=== PATIENT | male | born 1960 | race Caucasian/White ===

== ENCOUNTER 2020-03-03 04:00 | Inpatient (IN) | payer BC ==
[~2020-03-03] VITALS: Ht 180.3 cm; Wt 78.9 kg
[2020-03-03] MEDS ORDERED: levETIRAcetam 500 MG/5ML INJ IV ONE (04:59)
[2020-03-03] MEDS ORDERED: LORazepam 2MG/ML-1ML VIAL IV ONE ×2 (05:00→09:15)
[2020-03-03 06:11] LABS: Basophils # (auto) 0 10 ^3/uL (0-0.2); Eosinophils # (auto) 0 10 ^3/uL (0-0.8); Eosinophils % (auto) 0.2 % (0.0-7.0); Hemoglobin 15.4 g/dL (13.5-17.5); Lymphocytes # (auto) 0.4 10 ^3/uL (0.4-5.4)
[2020-03-03 06:13] LABS: Basophils % (auto) 0.1 % (0.0-2.0); Hematocrit 43.6 % (41.0-53.0); Lymphocytes % (auto) 7.9 % (10.0-50.0); Mean Corpuscular Hemoglobin 36.5 pg (28.0-32.0); Mean Corpuscular Hgb Conc. 35.3 g/dL (32.0-36.0); Mean Corpuscular Volume 103.3 fL (80.0-100.0); Monocytes # (auto) 0.6 10 ^3/uL (0-1.3); Monocytes % (auto) 12.6 % (0.0-12.0); Neutrophils % (auto) 79.2 % (37.0-80.0); Platelet Count (auto) 81 10^3/uL (140-450); Red Blood Cells 4.22 10^6/uL (4.5-5.90); Red Cell Distribution Width 15.6 % (11.8-14.3)
[2020-03-03 06:27] LABS: Blood Urea Nitrogen 11 mg/dL (7-18); Chloride 88 mmol/L (98-107); Potassium 3.6 mmol/L (3.5-5.1); Sodium 125 mmol/L (136-145)
[2020-03-03 06:32] LABS: Alcohol, Urine < 3.0 mg/dL (0-10); Amphetamine Screen, Urine NEGATIVE (NEGATIVE); Barbiturate Scree,Urine NEGATIVE (NEGATIVE); Benzodiazephine Screen, Urine NEGATIVE (NEGATIVE); Cannabinoid Screen, Urine NEGATIVE (NEGATIVE); Cocaine Screen, Urine NEGATIVE (NEGATIVE); Opiate Scree,Urine NEGATIVE (NEGATIVE); Phencyclidine Screen, Urine NEGATIVE (NEGATIVE)
[2020-03-03 06:34] LABS: Alanine Aminotransferase 59 U/L (16-61); Albumin 3.5 g/dL (3.4-5.0); Alkaline Phosphatase 116 U/L (45-117); Anion Gap 12 (5-15); Aspartate Aminotransferase 68 U/L (15-37); BUN/Creatinine Ratio 15.1; Blood Alcohol < 3.0 mg/dL (0-5); Carbon Dioxide 25 mmol/L (21-32); GFR African American 142 mL/min; GFR Non-African American 117 mL/min; Glucose 132 mg/dL (74-106); Total Protein 6.4 g/dL (6.4-8.2)
[2020-03-03] MEDS ORDERED: THIAMINE 100mg/ml INJ (200mg/2ml VIAL) IV ONE (07:15)
[2020-03-03] MEDS ORDERED: SODIUM CHLORIDE 0.9% 1,000 ML IV ONE ×2 (07:15)
[2020-03-03] MEDS ORDERED: chlordiazePOXIDE HCL 25 MG CAP PO ONE (12:30)
[2020-03-03] MEDS ORDERED: FOLIC ACID 1 MG, MULTIPLE VITAMIN 10 ML, MAGNESIUM SULF SDV 50% 8 MEQ, THIAMINE INJ 100... INJ SCH ×5 (12:34)
[2020-03-03] MEDS ORDERED: MORPHINE SULF INJ 2 MG/ML SYRINGE 1ML IV PRN (13:15)
[2020-03-03] MEDS ORDERED: LORazepam 2MG/ML-1ML VIAL IV PRN (13:15)
[2020-03-03] MEDS ORDERED: NITROGLYCERIN 0.4 MG SL TAB SL PRN (13:15)
[2020-03-03] MEDS: FOLIC ACID 1 MG, MULTIPLE VITAMIN 10 ML, MAGNESIUM SULF SDV 50% 8 MEQ, THIAMINE INJ 100... INJ SCH ×5 (14:18)
[2020-03-03] MEDS ORDERED: IBUP600T27 PO (16:15)
[2020-03-03] MEDS: chlordiazePOXIDE HCL 25 MG CAP PO SCH ×2 (18:01→23:50)
[2020-03-03] MEDS: LORazepam 2MG/ML-1ML VIAL IV PRN ×2 (20:15→23:16)
[2020-03-04] MEDS ORDERED: LORazepam 2MG/ML-1ML VIAL IV ONE (00:30)
[2020-03-04] MEDS: LORazepam 2MG/ML-1ML VIAL IV PRN ×3 (02:17→12:08)
[2020-03-04] MEDS: chlordiazePOXIDE HCL 25 MG CAP PO SCH ×3 (06:15→17:21)
[2020-03-04 06:45] LABS: BUN/Creatinine Ratio 23.6; Calcium 8.1 mg/dL (8.5-10.1)
[2020-03-04] MEDS ORDERED: NICOTINE 21MG/24 HR TOPICAL PATCH TD ONE (07:15)
[2020-03-04 08:40] VITALS: BP 125/73
[2020-03-04 08:59] VITALS: BP 125/73
[2020-03-04] MEDS ORDERED: PANTOPRAZOLE 40 MG TAB PO SCH (10:00)
[2020-03-04 13:42] VITALS: BP 128/70
[2020-03-04] MEDS: FOLIC ACID 1 MG, MULTIPLE VITAMIN 10 ML, MAGNESIUM SULF SDV 50% 8 MEQ, THIAMINE INJ 100... INJ SCH ×5 (14:52)
[2020-03-04 16:17] VITALS: BP 137/76
== END 2020-03-04 18:30 | disposition left against medical advice (07) | DRG 894 ==
LOC: EDSEX 04:00 → EDBD 04:00 → ER 04:07 → TELE 04:08 → WEST WING 03-04 08:27 → TELE-WESTW 03-04 09:04 → WEST WING 03-04 11:34
PROVIDERS: ADMIT Nurse Practitioner Acute Care; ATTEND Internal Medicine
DX: F10.231 Alcohol dependence with withdrawal delirium (principal); G93.41 Metabolic encephalopathy; E87.1 Hypo-osmolality and hyponatremia; D69.6 Thrombocytopenia, unspecified; E86.0 Dehydration; F17.210 Nicotine dependence, cigarettes, uncomplicated; I95.9 Hypotension, unspecified
CPT/HCPCS: 36415; 70450; 72125; 80048; 80053; 80307; 80320; 85025; 96361; 96365; 96375; G0378; J7060

== ENCOUNTER 2020-11-05 18:06 | Emergency (ER) | payer BC ==
[~2020-11-05] VITALS: Ht 182.9 cm; Wt 68.0 kg
[~2020-11-05 18:06] MED LIST: IBUP600T27 PO
[2020-11-05] MEDS ORDERED: KETOROLAC TROMETH 30 MG/ML 1ML VIAL IV ONE (20:30)
[2020-11-05 20:34] VITALS: BP 132/76
== END 2020-11-05 20:34 | disposition left against medical advice (07) ==
LOC: EDBD 18:06 → ER 18:09
DX: M25.552 Pain in left hip (principal); F17.210 Nicotine dependence, cigarettes, uncomplicated; Z53.29 Procedure and treatment not carried out because of patient's decision for other reasons; W01.0XXA Fall on same level from slipping, tripping and stumbling without subsequent striking against object, initial encounter; Y93.89 Activity, other specified; Y92.89 Other specified places as the place of occurrence of the external cause; Y99.8 Other external cause status
CPT/HCPCS: 73502; 96374; 99283; J1885

== ENCOUNTER 2021-02-12 02:39 | Inpatient (IN) | payer BC, OTHER ==
[~2021-02-12] VITALS: Ht 180.3 cm; Wt 88.5 kg
[2021-02-12] MEDS ORDERED: ACCU-CHEK COMFORT CURVE STRIP VI ONE (03:00)
[2021-02-12 04:41] LABS: Basophils # (auto) 0 10 ^3/uL (0-0.2); Basophils % (auto) 0.1 % (0.0-2.0); Eosinophils # (auto) 0 10 ^3/uL (0-0.8); Hematocrit 30.9 % (41.0-53.0); Hemoglobin 10.4 g/dL (13.5-17.5); Lymphocytes # (auto) 0.3 10 ^3/uL (0.4-5.4); Lymphocytes % (auto) 5.9 % (10.0-50.0); Mean Corpuscular Hemoglobin 31.8 pg (28.0-32.0); Mean Corpuscular Hgb Conc. 33.5 g/dL (32.0-36.0); Mean Corpuscular Volume 94.9 fL (80.0-100.0); Monocytes # (auto) 0.7 10 ^3/uL (0-1.3); Monocytes % (auto) 13.2 % (0.0-12.0); Neutrophils # (auto) 4.4 10 ^3/uL (1.6-8.6); Neutrophils % (auto) 80.8 % (37.0-80.0); Red Blood Cells 3.26 10^6/uL (4.5-5.90); Red Cell Distribution Width 20.6 % (11.8-14.3); White Blood Cell 5.5 10^3/uL (4.4-10.8)
[2021-02-12 04:54] LABS: Albumin 1.7 g/dL (3.4-5.0); Calcium 8.6 mg/dL (8.5-10.1); Potassium 3.2 mmol/L (3.5-5.1)
[2021-02-12 04:59] LABS: Urine Bacteria NONE SEEN /hpf (None Seen); Urine Blood 3+ /uL (Negative); Urine Hyaline Cast MOD /lpf (0 - 2); Urine Mucus FEW (None Seen); Urine Specific Gravity 1.027 (1.001-1.035); Urine WBC 160 /hpf (0 - 3)
[2021-02-12] MEDS ORDERED: SODIUM CHLORIDE 0.9% 1,000 ML IV ONE (05:00)
[2021-02-12] MEDS ORDERED: MVI in SODIUM CHLORIDE 0.9% 1,010 ML IV ONE (05:00)
[2021-02-12] MEDS ORDERED: THIAMINE 100mg/ml INJ (200mg/2ml VIAL) IV ONE (05:00)
[2021-02-12 05:01] LABS: Bilirubin, Total 0.6 mg/dL (0.2-1.0); Total Protein 6.8 g/dL (6.4-8.2)
[2021-02-12] MEDS: MAGNESIUM SULFATE 1GM/100ML 100 ML IV SCH ×2 (05:43→06:50)
[2021-02-12] MEDS ORDERED: D5W/ SOD CHL 0.9%/KCL 20MEQ 1,000 ML IV ONE (05:45)
[2021-02-12] MEDS ORDERED: cefTRIAXone 1GM/50ML D5W 50 ML IV ONE (05:45)
[2021-02-12 05:50] LABS: INR 1.04 (0.9-1.15); Partial Thromboplastin Time 39.9 sec (23.6-33.0)
[2021-02-12 06:01] LABS: Magnesium 1.7 mg/dL (1.6-2.6)
[2021-02-12 06:30] LABS: Blood Alcohol < 3.0 mg/dL (0-5)
[2021-02-12] MEDS ORDERED: chlordiazePOXIDE HCL 25 MG CAP PO ONE (06:30)
[2021-02-12] MEDS ORDERED: NITROGLYCERIN 0.4 MG SL TAB SL PRN (07:30)
[2021-02-12] MEDS ORDERED: ONDANSETRON HCL 4 MG/2 ML VIAL IV PRN (07:30)
[2021-02-12] MEDS ORDERED: MORPHINE SULFATE INJECTION 2 MG/ML SYRG IV PRN (07:30)
[2021-02-12] MEDS ORDERED: chlordiazePOXIDE HCL 25 MG CAP PO PRN (07:30)
[2021-02-12] MEDS: ENOXAPARIN SOD 40 MG/0.4 ML SYRINGE SC SCH (10:22)
[2021-02-12] MEDS: PANTOPRAZOLE 40 MG TAB PO SCH (10:22)
[2021-02-12 11:59] LABS: BUN/Creatinine Ratio 28.9; Calcium 8.1 mg/dL (8.5-10.1); Potassium 3.2 mmol/L (3.5-5.1)
[2021-02-12] MEDS ORDERED: VANCOMYCIN PER PHARMACY 0 MG IV SCH (12:00)
[2021-02-12 12:31] LABS: Alcohol, Urine < 3.0 mg/dL (0-10); Amphetamine Screen, Urine NEGATIVE (NEGATIVE); Barbiturate Scree,Urine NEGATIVE (NEGATIVE); Benzodiazephine Screen, Urine NEGATIVE (NEGATIVE); Cannabinoid Screen, Urine NEGATIVE (NEGATIVE); Cocaine Screen, Urine NEGATIVE (NEGATIVE); Opiate Scree,Urine NEGATIVE (NEGATIVE); Phencyclidine Screen, Urine NEGATIVE (NEGATIVE)
[2021-02-12] MEDS: chlordiazePOXIDE HCL 5 MG CAP PO SCH ×3 (12:54→21:50)
[2021-02-12] MEDS: VANCOMYCIN 1GM/250ML 250 ML IV SCH ×2 (13:57→23:43)
[2021-02-12] MEDS: dilTIAZem 120MG ER CAP PO SCH (14:43)
[2021-02-12] MEDS: SOD CHL 0.9%/ KCL 40MEQ 1,000 ML IV SCH (14:45)
[2021-02-12 16:56] VITALS: BP 120/74
[2021-02-12 22:00] VITALS: BP 123/74
[2021-02-12] MEDS: MORPHINE SULFATE INJECTION 2 MG/ML SYRG IV PRN (23:43)
[2021-02-13] MEDS: SOD CHL 0.9%/ KCL 40MEQ 1,000 ML IV SCH ×2 (04:06→21:32)
[2021-02-13 05:00] VITALS: BP 117/64
[2021-02-13 06:04] LABS: Basophils # (auto) 0 10 ^3/uL (0-0.2); Eosinophils # (auto) 0 10 ^3/uL (0-0.8); Eosinophils % (auto) 0.4 % (0.0-7.0); Hemoglobin 8.1 g/dL (13.5-17.5); Lymphocytes # (auto) 0.6 10 ^3/uL (0.4-5.4); Monocytes # (auto) 0.6 10 ^3/uL (0-1.3); Neutrophils # (auto) 2.7 10 ^3/uL (1.6-8.6); Red Blood Cells 2.52 10^6/uL (4.5-5.90); White Blood Cell 3.9 10^3/uL (4.4-10.8)
[2021-02-13 06:07] LABS: Basophils % (auto) 0.2 % (0.0-2.0); Lymphocytes % (auto) 14.6 % (10.0-50.0); Mean Corpuscular Hemoglobin 32.3 pg (28.0-32.0); Mean Corpuscular Hgb Conc. 33.9 g/dL (32.0-36.0); Mean Corpuscular Volume 95.4 fL (80.0-100.0); Monocytes % (auto) 15.4 % (0.0-12.0); Neutrophils % (auto) 69.4 % (37.0-80.0); Red Cell Distribution Width 20.1 % (11.8-14.3)
[2021-02-13] MEDS: chlordiazePOXIDE HCL 5 MG CAP PO SCH ×4 (06:31→22:06)
[2021-02-13 06:57] LABS: Calcium 8.2 mg/dL (8.5-10.1); Potassium 3.1 mmol/L (3.5-5.1)
[2021-02-13 07:01] LABS: Albumin 1.1 g/dL (3.4-5.0); BUN/Creatinine Ratio 37.1
[2021-02-13 07:04] LABS: Bilirubin, Total 0.4 mg/dL (0.2-1.0); Total Protein 5.5 g/dL (6.4-8.2)
[2021-02-13 08:00] VITALS: BP 111/60
[2021-02-13 09:00] VITALS: BP 111/60
[2021-02-13] MEDS: cefTRIAXone 1GM/50ML D5W 50 ML IV SCH (09:52)
[2021-02-13] MEDS: THIAMINE HCL 100 MG TAB PO SCH (09:52)
[2021-02-13] MEDS: PANTOPRAZOLE 40 MG TAB PO SCH (09:53)
[2021-02-13] MEDS: ENOXAPARIN SOD 40 MG/0.4 ML SYRINGE SC SCH (09:53)
[2021-02-13] MEDS: dilTIAZem 120MG ER CAP PO SCH (09:54)
[2021-02-13] MEDS: MORPHINE SULFATE INJECTION 2 MG/ML SYRG IV PRN ×4 (09:55→22:06)
[2021-02-13] MEDS: VANCOMYCIN 1GM/250ML 250 ML IV SCH ×2 (11:23→19:56)
[2021-02-13 12:58] VITALS: BP 101/73
[2021-02-13] MEDS: Ensure HIGH Protein Chocolate 8oz Bottle PO SCH ×2 (13:47→18:08)
[2021-02-13] MEDS: FOLIC ACID 1 MG, MULTIPLE VITAMIN 10 ML, MAGNESIUM SULF SDV 50% 8 MEQ, THIAMINE INJ 100... INJ SCH ×5 (13:48)
[2021-02-13] MEDS ORDERED: NICOTINE 14 MG/24HR TOPICAL PATCH TD ONE (14:00)
[2021-02-13 17:00] VITALS: BP 97/59
[2021-02-13 22:00] VITALS: BP 120/58
[2021-02-14 05:00] VITALS: BP 117/67
[2021-02-14] MEDS: chlordiazePOXIDE HCL 5 MG CAP PO SCH ×4 (05:31→23:32)
[2021-02-14] MEDS: MORPHINE SULFATE INJECTION 2 MG/ML SYRG IV PRN ×3 (05:31→18:16)
[2021-02-14] MEDS: VANCOMYCIN 1GM/250ML 250 ML IV SCH ×2 (05:32→16:29)
[2021-02-14 08:00] VITALS: BP 126/63
[2021-02-14 09:00] VITALS: BP 126/63
[2021-02-14] MEDS: SOD CHL 0.9%/ KCL 40MEQ 1,000 ML IV SCH (09:40)
[2021-02-14] MEDS: Ensure HIGH Protein Chocolate 8oz Bottle PO SCH ×3 (09:40→18:15)
[2021-02-14] MEDS: cefTRIAXone 1GM/50ML D5W 50 ML IV SCH (09:45)
[2021-02-14] MEDS: dilTIAZem 120MG ER CAP PO SCH (09:46)
[2021-02-14] MEDS: PANTOPRAZOLE 40 MG TAB PO SCH (09:46)
[2021-02-14] MEDS: ENOXAPARIN SOD 40 MG/0.4 ML SYRINGE SC SCH (09:47)
[2021-02-14] MEDS: THIAMINE HCL 100 MG TAB PO SCH (09:47)
[2021-02-14] MEDS: NICOTINE 14 MG/24HR TOPICAL PATCH TD SCH (09:48)
[2021-02-14] MEDS: ACETAMINOPHEN 325 MG TAB PO PRN (09:57)
[2021-02-14 12:47] VITALS: BP 123/62
[2021-02-14] MEDS: FOLIC ACID 1 MG, MULTIPLE VITAMIN 10 ML, MAGNESIUM SULF SDV 50% 8 MEQ, THIAMINE INJ 100... INJ SCH ×5 (13:26)
[2021-02-14 16:41] VITALS: BP 124/66
[2021-02-14 22:00] VITALS: BP 136/56
[2021-02-15] MEDS: VANCOMYCIN 1GM/250ML 250 ML IV SCH ×2 (03:56→12:25)
[2021-02-15 05:00] VITALS: BP 135/65
[2021-02-15] MEDS: chlordiazePOXIDE HCL 5 MG CAP PO SCH ×4 (06:14→21:15)
[2021-02-15] MEDS: MORPHINE SULFATE INJECTION 2 MG/ML SYRG IV PRN ×4 (06:15→18:36)
[2021-02-15] MEDS: SOD CHL 0.9%/ KCL 40MEQ 1,000 ML IV SCH ×2 (06:18→09:56)
[2021-02-15 08:00] VITALS: BP 149/60
[2021-02-15 09:00] VITALS: BP 149/60
[2021-02-15] MEDS: Ensure HIGH Protein Chocolate 8oz Bottle PO SCH ×3 (09:53→17:18)
[2021-02-15] MEDS: cefTRIAXone 1GM/50ML D5W 50 ML IV SCH (09:53)
[2021-02-15] MEDS: THIAMINE HCL 100 MG TAB PO SCH (09:53)
[2021-02-15] MEDS: PANTOPRAZOLE 40 MG TAB PO SCH (09:54)
[2021-02-15] MEDS: ENOXAPARIN SOD 40 MG/0.4 ML SYRINGE SC SCH (09:54)
[2021-02-15] MEDS: dilTIAZem 120MG ER CAP PO SCH (09:54)
[2021-02-15] MEDS: NICOTINE 14 MG/24HR TOPICAL PATCH TD SCH (09:56)
[2021-02-15] MEDS: FOLIC ACID 1 MG, MULTIPLE VITAMIN 10 ML, MAGNESIUM SULF SDV 50% 8 MEQ, THIAMINE INJ 100... INJ SCH ×5 (12:24)
[2021-02-15 13:00] VITALS: BP 132/70
[2021-02-15 17:00] VITALS: BP 126/62
[2021-02-15 22:09] VITALS: BP 155/68
[2021-02-16] VITALS (17 sets, daily range): BP systolic 116–148; BP diastolic 63–83
[2021-02-16] MEDS: MORPHINE SULFATE INJECTION 2 MG/ML SYRG IV PRN ×2 (01:56→21:08)
[2021-02-16 06:52] LABS: Basophils # (auto) 0 10 ^3/uL (0-0.2); Eosinophils # (auto) 0 10 ^3/uL (0-0.8); Hemoglobin 7.7 g/dL (13.5-17.5); Monocytes # (auto) 0.5 10 ^3/uL (0-1.3); Nucleated Red Blood Cells % 0.1 %; White Blood Cell 3.5 10^3/uL (4.4-10.8)
[2021-02-16 06:54] LABS: Eosinophils % (auto) 0.8 % (0.0-7.0); Lymphocytes # (auto) 0.9 10 ^3/uL (0.4-5.4); Lymphocytes % (auto) 27.1 % (10.0-50.0); Mean Corpuscular Hemoglobin 31.7 pg (28.0-32.0); Mean Corpuscular Hgb Conc. 33.6 g/dL (32.0-36.0); Mean Corpuscular Volume 94.3 fL (80.0-100.0); Monocytes % (auto) 14.7 % (0.0-12.0); Neutrophils % (auto) 56.4 % (37.0-80.0); Red Blood Cells 2.44 10^6/uL (4.5-5.90); Red Cell Distribution Width 19.7 % (11.8-14.3)
[2021-02-16 07:11] LABS: INR 0.97 (0.9-1.15); Partial Thromboplastin Time 34.7 sec (23.6-33.0)
[2021-02-16 07:17] LABS: BUN/Creatinine Ratio 14.8; Calcium 8.3 mg/dL (8.5-10.1); Potassium 4.1 mmol/L (3.5-5.1)
[2021-02-16] MEDS: Ensure HIGH Protein Chocolate 8oz Bottle PO SCH ×3 (08:00→18:00)
[2021-02-16] MEDS: cefTRIAXone 1GM/50ML D5W 50 ML IV SCH (08:09)
[2021-02-16] MEDS ORDERED: TRANEXAMIC ACID 20 ML ONE (08:34)
[2021-02-16] MEDS ORDERED: VANCOMYCIN HCL 1000 MG VL ONE (08:37)
[2021-02-16] MEDS ORDERED: MORPHINE SULF PF 2 MG/2 ML SYRG ONE (09:08)
[2021-02-16] MEDS: EPINEPHrine HCL 1 MG/1 ML AMP ONE ×2 (09:11→11:00)
[2021-02-16] MEDS ORDERED: BUPIVACAINE HCL 50 ML ONE (09:11)
[2021-02-16] MEDS ORDERED: KETOROLAC TROMETH 60MG/2ML VIAL ONE (09:13)
[2021-02-16] MEDS ORDERED: MIDAZOLAM HCL 2MG/2ML 2ml VIAL (1mg/ml) ONE (09:39)
[2021-02-16] MEDS ORDERED: fentaNYL CITRATE 100 MCG/2 ML VL ONE (09:39)
[2021-02-16] MEDS: dilTIAZem 120MG ER CAP PO SCH (10:00)
[2021-02-16] MEDS ORDERED: ONDANSETRON HCL 4 MG/2 ML VIAL ONE (11:13)
[2021-02-16] MEDS ORDERED: PROPOFOL 10 MG/ML 20 ML IV ONE (11:13)
[2021-02-16] MEDS ORDERED: LIDOCAINE 2% (LOCAL ANESTH.) PF 5ml SDV ONE (11:13)
[2021-02-16] MEDS: LACTATED RINGER'S 1,000 ML IV SCH ×3 (11:15→21:15)
[2021-02-16] MEDS ORDERED: LACTULOSE 20Gm/30ML SOLN PO ONE (11:15)
[2021-02-16 11:27] LABS: % Iron Saturation 13.5 % (20-55)
[2021-02-16] MEDS ORDERED: HYDROmorphone HCL 2 MG/ML VL IV PRN (11:45)
[2021-02-16] MEDS ORDERED: KETOROLAC TROMETH 30 MG/ML 1ML VIAL IV PRN (11:45)
[2021-02-16] MEDS ORDERED: DexAMETHasone SOD PHOS 10MG/1ML VIAL INJ IV PRN (11:45)
[2021-02-16] MEDS ORDERED: NALOXONE HCL 0.4 MG/ML VIAL IV PRN (11:45)
[2021-02-16] MEDS ORDERED: NALBUPHINE HCL 10 MG/1ml INJECTION SUBCUT ONE (11:45)
[2021-02-16] MEDS ORDERED: diphenhdrAMINE HCL 50 MG/1 ML VL IV PRN (11:45)
[2021-02-16] MEDS ORDERED: ONDANSETRON HCL 4 MG/2 ML VIAL IV PRN (11:45)
[2021-02-16] MEDS: chlordiazePOXIDE HCL 5 MG CAP PO SCH ×4 (12:26→21:07)
[2021-02-16] MEDS: THIAMINE HCL 100 MG TAB PO SCH (12:26)
[2021-02-16] MEDS: PANTOPRAZOLE 40 MG TAB PO SCH (12:28)
[2021-02-16] MEDS: NICOTINE 14 MG/24HR TOPICAL PATCH TD SCH (12:28)
[2021-02-16] MEDS: FOLIC ACID 1 MG, MULTIPLE VITAMIN 10 ML, MAGNESIUM SULF SDV 50% 8 MEQ, THIAMINE INJ 100... INJ SCH ×5 (12:29)
[2021-02-16] MEDS: SODIUM CHLOR 0.9% PF (SALINE LOCK) 10ML VIAL/SYR IV SCH ×2 (14:02→21:07)
[2021-02-16 15:18] LABS: Hemoglobin 8.7 g/dL (13.5-17.5)
[2021-02-16] MEDS: ERGOCALCIFEROL 50,000 UNIT(1.25MG) CAP PO SCH (15:38)
[2021-02-16 18:22] LABS: Ferritin 412.5 ng/mL (10-322); Folate (Folic Acid) 14.71 ng/mL (5.38-24)
[2021-02-16] MEDS: LACTULOSE 20Gm/30ML SOLN PO SCH (21:07)
[2021-02-16] MEDS: VANCOMYCIN 1GM/250ML 250 ML IV SCH (23:11)
[2021-02-17] VITALS (10 sets, daily range): BP systolic 109–156; BP diastolic 52–80
[2021-02-17] MEDS: MORPHINE SULFATE INJECTION 2 MG/ML SYRG IV PRN ×5 (01:31→21:05)
[2021-02-17] MEDS: SODIUM CHLOR 0.9% PF (SALINE LOCK) 10ML VIAL/SYR IV SCH ×4 (06:00→21:15)
[2021-02-17 06:05] LABS: Hemoglobin 8.4 g/dL (13.5-17.5)
[2021-02-17] MEDS: chlordiazePOXIDE HCL 5 MG CAP PO SCH (06:05)
[2021-02-17 06:09] LABS: Hematocrit 25.1 % (41.0-53.0)
[2021-02-17 06:31] LABS: Potassium 4.3 mmol/L (3.5-5.1)
[2021-02-17 06:41] LABS: BUN/Creatinine Ratio 14.8; Bilirubin, Total 0.2 mg/dL (0.2-1.0); Calcium 8.3 mg/dL (8.5-10.1); Total Protein 5.6 g/dL (6.4-8.2)
[2021-02-17] MEDS: Ensure HIGH Protein Chocolate 8oz Bottle PO SCH ×3 (08:00→18:00)
[2021-02-17] MEDS: THIAMINE HCL 100 MG TAB PO SCH (09:13)
[2021-02-17] MEDS: LACTULOSE 20Gm/30ML SOLN PO SCH ×2 (09:13→22:00)
[2021-02-17] MEDS: NICOTINE 14 MG/24HR TOPICAL PATCH TD SCH (09:14)
[2021-02-17] MEDS: PANTOPRAZOLE 40 MG TAB PO SCH (09:14)
[2021-02-17] MEDS ORDERED: ENOXAPARIN SOD 40 MG/0.4 ML SYRINGE SC SCH (10:00)
[2021-02-17] MEDS: SODIUM FERR GLUC 62.5MG/5ML 125 MG in SODIUM CHL 0.9% 100 ML IV SCH (11:24)
[2021-02-17] MEDS: VANCOMYCIN 1GM/250ML 250 ML IV SCH (12:45)
[2021-02-17] MEDS ORDERED: LIDOCAINE 1% (LOCAL ANESTH.) PF 5ml SDV ID ONE (15:45)
[2021-02-17] MEDS ORDERED: FLEET ENEMA(ADULT) 135 ML PR ONE (17:45)
[2021-02-17] MEDS: NAFCILLIN SOD 2GM 2 GM in SODIUM CHL 0.9% 100 ML IV SCH ×2 (18:05→21:15)
[2021-02-18] MEDS: NAFCILLIN SOD 2GM 2 GM in SODIUM CHL 0.9% 100 ML IV SCH ×7 (02:09→21:28)
[2021-02-18] MEDS: MORPHINE SULFATE INJECTION 2 MG/ML SYRG IV PRN ×5 (02:10→21:43)
[2021-02-18 05:00] VITALS: BP 141/87
[2021-02-18] MEDS: SODIUM CHLOR 0.9% PF (SALINE LOCK) 10ML VIAL/SYR IV SCH ×5 (06:32→21:27)
[2021-02-18 07:48] LABS: Hematocrit 24.9 % (41.0-53.0); Hemoglobin 8.4 g/dL (13.5-17.5)
[2021-02-18 09:00] VITALS: BP 137/83
[2021-02-18] MEDS: Ensure HIGH Protein Chocolate 8oz Bottle PO SCH ×3 (09:57→18:00)
[2021-02-18] MEDS: THIAMINE HCL 100 MG TAB PO SCH (09:58)
[2021-02-18] MEDS: NICOTINE 14 MG/24HR TOPICAL PATCH TD SCH (09:58)
[2021-02-18] MEDS: PANTOPRAZOLE 40 MG TAB PO SCH (09:58)
[2021-02-18] MEDS: LACTULOSE 20Gm/30ML SOLN PO SCH ×2 (09:58→21:26)
[2021-02-18] MEDS: SODIUM FERR GLUC 62.5MG/5ML 125 MG in SODIUM CHL 0.9% 100 ML IV SCH (12:46)
[2021-02-18 13:00] VITALS: BP 143/80
[2021-02-18] MEDS: ACETAMINOPHEN 325 MG TAB PO PRN (13:53)
[2021-02-18 16:47] VITALS: BP 138/71
[2021-02-18 22:00] VITALS: BP 126/68
[2021-02-19] VITALS (7 sets, daily range): BP systolic 130–158; BP diastolic 66–97
[2021-02-19] MEDS: NAFCILLIN SOD 2GM 2 GM in SODIUM CHL 0.9% 100 ML IV SCH ×6 (02:08→21:47)
[2021-02-19] MEDS: MORPHINE SULFATE INJECTION 2 MG/ML SYRG IV PRN ×3 (04:15→13:04)
[2021-02-19] MEDS: SODIUM CHLOR 0.9% PF (SALINE LOCK) 10ML VIAL/SYR IV SCH ×5 (05:31→21:47)
[2021-02-19 05:44] LABS: Hemoglobin 8.3 g/dL (13.5-17.5)
[2021-02-19] MEDS: Ensure HIGH Protein Chocolate 8oz Bottle PO SCH ×3 (08:17→17:53)
[2021-02-19] MEDS: THIAMINE HCL 100 MG TAB PO SCH (08:49)
[2021-02-19] MEDS: NICOTINE 14 MG/24HR TOPICAL PATCH TD SCH (08:50)
[2021-02-19] MEDS: PANTOPRAZOLE 40 MG TAB PO SCH (08:50)
[2021-02-19] MEDS ORDERED: MAGNESIUM CITRATE SOLUTION 300 ML BTL PO ONE (10:00)
[2021-02-19] MEDS: LACTULOSE 20Gm/30ML SOLN PO SCH (10:01)
[2021-02-19] MEDS: HYDROcodone-ACET 5/325MG TAB PO PRN ×2 (16:28→21:58)
[2021-02-19] MEDS: FERROUS SULFATE 325mg EC TAB PO SCH (17:22)
[2021-02-20] MEDS: NAFCILLIN SOD 2GM 2 GM in SODIUM CHL 0.9% 100 ML IV SCH ×6 (01:57→21:47)
[2021-02-20] MEDS: HYDROcodone-ACET 5/325MG TAB PO PRN ×5 (01:58→22:45)
[2021-02-20 05:00] VITALS: BP 143/80
[2021-02-20] MEDS: SODIUM CHLOR 0.9% PF (SALINE LOCK) 10ML VIAL/SYR IV SCH ×5 (05:17→21:48)
[2021-02-20] MEDS: Ensure HIGH Protein Chocolate 8oz Bottle PO SCH ×3 (08:23→18:06)
[2021-02-20 09:00] VITALS: BP 162/75
[2021-02-20] MEDS: FERROUS SULFATE 325mg EC TAB PO SCH ×2 (10:30→18:06)
[2021-02-20] MEDS: PANTOPRAZOLE 40 MG TAB PO SCH (10:32)
[2021-02-20] MEDS: THIAMINE HCL 100 MG TAB PO SCH (10:35)
[2021-02-20] MEDS: NICOTINE 14 MG/24HR TOPICAL PATCH TD SCH (10:38)
[2021-02-20] MEDS ORDERED: amLODIPine BESYLATE 5 MG TAB PO ONE (11:45)
[2021-02-20 13:00] VITALS: BP 126/62
[2021-02-20 17:00] VITALS: BP 133/76
[2021-02-20] MEDS: MORPHINE SULFATE INJECTION 2 MG/ML SYRG IV PRN (17:18)
[2021-02-20 22:00] VITALS: BP 143/80
[2021-02-21] MEDS: NAFCILLIN SOD 2GM 2 GM in SODIUM CHL 0.9% 100 ML IV SCH ×5 (02:13→17:53)
[2021-02-21] MEDS: HYDROcodone-ACET 5/325MG TAB PO PRN ×5 (02:46→20:43)
[2021-02-21 05:00] VITALS: BP 152/79
[2021-02-21] MEDS: SODIUM CHLOR 0.9% PF (SALINE LOCK) 10ML VIAL/SYR IV SCH ×5 (05:12→22:00)
[2021-02-21] MEDS: Ensure HIGH Protein Chocolate 8oz Bottle PO SCH ×3 (07:47→17:51)
[2021-02-21 08:10] VITALS: BP 138/73
[2021-02-21 09:04] VITALS: BP 138/73
[2021-02-21] MEDS: FERROUS SULFATE 325mg EC TAB PO SCH ×2 (09:53→17:53)
[2021-02-21] MEDS: PANTOPRAZOLE 40 MG TAB PO SCH (09:54)
[2021-02-21] MEDS: THIAMINE HCL 100 MG TAB PO SCH (09:56)
[2021-02-21] MEDS: amLODIPine BESYLATE 5 MG TAB PO SCH (09:57)
[2021-02-21] MEDS: NICOTINE 14 MG/24HR TOPICAL PATCH TD SCH (09:59)
[2021-02-21 12:57] VITALS: BP 144/81
[2021-02-21 17:00] VITALS: BP 155/81
[2021-02-21] MEDS: LORazepam 2MG/ML-1ML VIAL IV PRN (21:04)
[2021-02-21 22:00] VITALS: BP 138/80
[2021-02-22] VITALS (7 sets, daily range): BP systolic 125–162; BP diastolic 77–94
[2021-02-22] MEDS: NAFCILLIN SOD 2GM 2 GM in SODIUM CHL 0.9% 100 ML IV SCH ×7 (00:01→22:08)
[2021-02-22] MEDS: HYDROcodone-ACET 5/325MG TAB PO PRN ×5 (01:43→23:38)
[2021-02-22] MEDS: MORPHINE SULFATE INJECTION 2 MG/ML SYRG IV PRN ×2 (05:43→22:08)
[2021-02-22] MEDS: SODIUM CHLOR 0.9% PF (SALINE LOCK) 10ML VIAL/SYR IV SCH ×5 (05:48→22:09)
[2021-02-22] MEDS: Ensure HIGH Protein Chocolate 8oz Bottle PO SCH ×3 (08:00→18:22)
[2021-02-22] MEDS: PANTOPRAZOLE 40 MG TAB PO SCH (10:45)
[2021-02-22] MEDS: FERROUS SULFATE 325mg EC TAB PO SCH ×2 (10:45→18:24)
[2021-02-22] MEDS: THIAMINE HCL 100 MG TAB PO SCH (10:46)
[2021-02-22] MEDS: amLODIPine BESYLATE 5 MG TAB PO SCH (10:59)
[2021-02-22] MEDS: NICOTINE 14 MG/24HR TOPICAL PATCH TD SCH (11:08)
[2021-02-23] MEDS: NAFCILLIN SOD 2GM 2 GM in SODIUM CHL 0.9% 100 ML IV SCH ×6 (01:53→21:22)
[2021-02-23 05:00] VITALS: BP 134/66
[2021-02-23] MEDS: HYDROcodone-ACET 5/325MG TAB PO PRN ×2 (05:10→10:37)
[2021-02-23] MEDS: SODIUM CHLOR 0.9% PF (SALINE LOCK) 10ML VIAL/SYR IV SCH ×3 (06:14→21:23)
[2021-02-23 07:35] VITALS: BP 143/77
[2021-02-23] MEDS: Ensure HIGH Protein Chocolate 8oz Bottle PO SCH ×3 (07:41→18:11)
[2021-02-23 08:00] VITALS: BP 143/77
[2021-02-23] MEDS: FERROUS SULFATE 325mg EC TAB PO SCH ×2 (08:03→18:11)
[2021-02-23] MEDS: THIAMINE HCL 100 MG TAB PO SCH (10:39)
[2021-02-23] MEDS: NICOTINE 14 MG/24HR TOPICAL PATCH TD SCH (10:40)
[2021-02-23 12:00] VITALS: BP 135/76
[2021-02-23] MEDS: MORPHINE SULFATE INJECTION 2 MG/ML SYRG IV PRN ×2 (14:09→23:27)
[2021-02-23] MEDS: HYDROcodone-ACET 10/325MG TAB PO PRN ×2 (15:07→21:22)
[2021-02-23] MEDS: ERGOCALCIFEROL 50,000 UNIT(1.25MG) CAP PO SCH (15:11)
[2021-02-23] MEDS: LORazepam 2MG/ML-1ML VIAL IV PRN (16:36)
[2021-02-23 17:17] VITALS: BP 152/88
[2021-02-23 22:00] VITALS: BP 152/99
[2021-02-24] MEDS: NAFCILLIN SOD 2GM 2 GM in SODIUM CHL 0.9% 100 ML IV SCH ×5 (01:46→17:01)
[2021-02-24] MEDS: HYDROcodone-ACET 10/325MG TAB PO PRN ×4 (02:24→17:02)
[2021-02-24] MEDS: MORPHINE SULFATE INJECTION 2 MG/ML SYRG IV PRN ×2 (05:36→11:59)
[2021-02-24 06:29] VITALS: BP 150/95
[2021-02-24 09:00] VITALS: BP 145/66
[2021-02-24] MEDS: FERROUS SULFATE 325mg EC TAB PO SCH (09:06)
[2021-02-24] MEDS: THIAMINE HCL 100 MG TAB PO SCH (09:07)
[2021-02-24] MEDS: NICOTINE 14 MG/24HR TOPICAL PATCH TD SCH (09:09)
[2021-02-24] MEDS: Ensure HIGH Protein Chocolate 8oz Bottle PO SCH ×2 (09:13→12:42)
[2021-02-24] MEDS: SODIUM CHLOR 0.9% PF (SALINE LOCK) 10ML VIAL/SYR IV SCH (09:14)
[2021-02-24] MEDS ORDERED: amLODIPine BESYLATE 5 MG TAB PO SCH (10:00)
[2021-02-24 13:00] VITALS: BP 136/76
== END 2021-02-24 18:30 | DRG 480 ==
LOC: ER 02:39 → EDBD 02:39 → TELE 07:30 → TELE-WESTW 12:38 → WEST WING 02-18 15:51
PROVIDERS: ADMIT Nurse Practitioner; ATTEND Internal Medicine
PROC: 0S9B3ZZ Drainage of Left Hip Joint, Percutaneous Approach (ICD-10-PCS; principal; 2021-02-13)
PROC: 0SBB0ZZ Excision of Left Hip Joint, Open Approach (ICD-10-PCS; 2021-02-16)
PROC: 3E0U029 Introduction of Other Anti-infective into Joints, Open Approach (ICD-10-PCS; 2021-02-16)
PROC: 30233N1 Transfusion of Nonautologous Red Blood Cells into Peripheral Vein, Percutaneous Approach (ICD-10-PCS; 2021-02-16)
PROC: 05HB33Z Insertion of Infusion Device into Right Basilic Vein, Percutaneous Approach (ICD-10-PCS; 2021-02-17)
PROC: B54MZZA Ultrasonography of Right Upper Extremity Veins, Guidance (ICD-10-PCS; 2021-02-17)
DX: M00.052 Staphylococcal arthritis, left hip (principal); E43 Unspecified severe protein-calorie malnutrition; G92.9 Unspecified toxic encephalopathy; E87.1 Hypo-osmolality and hyponatremia; E87.2 Acidosis; F10.239 Alcohol dependence with withdrawal, unspecified; N39.0 Urinary tract infection, site not specified; M87.88 Other osteonecrosis, other site; D50.9 Iron deficiency anemia, unspecified; E55.9 Vitamin D deficiency, unspecified; E86.0 Dehydration; E87.6 Hypokalemia; I10 Essential (primary) hypertension; F17.210 Nicotine dependence, cigarettes, uncomplicated; Z20.822 Contact with and (suspected) exposure to COVID-19; I48.91 Unspecified atrial fibrillation; R00.0 Tachycardia, unspecified; B95.61 Methicillin susceptible Staphylococcus aureus infection as the cause of diseases classified elsewhere; R56.9 Unspecified convulsions; Z91.81 History of falling; Z68.27 Body mass index [BMI] 27.0-27.9, adult
CPT/HCPCS: 36415; 36569; 36600; 70450; 71045; 72170; 72192; 74176; 76942; 80048; 80053; 80202; 80307; 80320; 81001; 82010; 82140; 82270; 82306; 82565; 82607; 82728; 82746; 82805; 82962; 83540; 83550; 83605; 83735; 83880; 83930; 83935; 84484; 85014; 85018; 85025; 85610; 85652; 85730; 86141; 86850; 86900; 86901; 86920; 87040; 87070; 87075; 87077; 87086; 87088; 87186; 87205; 87426; 89051; 89060; 93005; 93306; 93926; 93970; 96361; 96365; 96375; 97110; 97116; 97163; 97530; G0378; J0171; J0696; J1885; J2001; J2250; J2405; J2704; J3490